=== PATIENT | female | born 2005 | race Caucasian/White ===

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

== ENCOUNTER → 2025-04-07 | Outpatient (REF) | payer OTHER | LOC: M SFHCCAPE 14:28 | PROVIDERS: ATTEND Physician Assistant Medical | DX: Z13.0 Encounter for screening for diseases of the blood and blood-forming organs and certain disorders involving the immune mechanism (principal) ==

== ENCOUNTER → 2025-04-07 | Outpatient (REF) | payer OTHER ==
[2025-04-07 19:12] LABS: PLATELET COUNT, AUTOMATED 215 10^3/uL (150-450)
[2025-04-07 19:20] LABS: ALT/SGPT 16 U/L (7.0-40); AST/SGOT 29 U/L (<34); C REACTIVE PROTEIN QUANTITATIV < 0.50 MG/DL (<1.0); IRON (FE) 102 UG/DL (50-170); PERCENT SATURATION 28.1 % (13.2-45.0)
== END ==
LOC: M LABDRWCV 17:29
PROVIDERS: ATTEND Internal Medicine Gastroenterology
DX: K50.80 Crohn's disease of both small and large intestine without complications (principal); D50.9 Iron deficiency anemia, unspecified

== ENCOUNTER → 2025-08-11 | Outpatient (CLI) | payer OTHER | LOC: M RAD 10:24 | PROVIDERS: ATTEND Surgery | DX: I83.811 Varicose veins of right lower extremity with pain (principal); M79.604 Pain in right leg ==